=== PATIENT | female | born 1965 | race Caucasian/White ===

== ENCOUNTER 2023-09-07 13:08 | Day surgery (SDC) | payer MEDICARE, MEDICAID ==
[~2023-09-07] VITALS: Ht 167.6 cm; Wt 77.7 kg
[~2023-09-07 13:08] MED LIST: ARIP1TAB6 PO; EZET10TA21 PO; LEVO50TA5 PO; NS 1,000 ML IV ONE; SENN-186 PO; VITMTA PO; ZOLO100T PO
[2023-09-07] MEDS ORDERED: propofoL 200 MG/20 ML VIAL As Ordered ONE (15:24)
[2023-09-07] MEDS ORDERED: LIDOCAINE 2% 100MG/5ML SDV (FOR ANES.) As Ordered ONE (15:24)
[2023-09-07] MEDS ORDERED: PHENYLephrine 500MCG 5ML (100MCG/ML) SYRINGE As Ordered ONE (15:38)
[2023-09-07 16:07] VITALS: TEMP 97.5
[2023-09-07 16:25] VITALS: BP 127/57; O2SAT 99
== END 2023-09-07 16:37 | disposition home or self-care (01) ==
LOC: M OPP 13:08
PROVIDERS: ATTEND Surgery
DX: D12.5 Benign neoplasm of sigmoid colon (principal); K63.89 Other specified diseases of intestine; E03.9 Hypothyroidism, unspecified; Z79.899 Other long term (current) drug therapy; Z79.890 Hormone replacement therapy; Z88.8 Allergy status to other drugs, medicaments and biological substances
CPT/HCPCS: 45385; 88305; J2371